=== PATIENT | female | born 1965 | race Caucasian/White ===

== ENCOUNTER 2022-05-04 07:41 | Day surgery (SDC) | payer MEDICAID ==
[~2022-05-04] VITALS: Ht 175.3 cm; Wt 93.0 kg
[2022-05-04] MEDS ORDERED: LISINOPRIL10 MG PO (09:18)
[2022-05-04] MEDS ORDERED: ATORVASTATIN CA80 MG PO (09:19)
[2022-05-04] MEDS ORDERED: METOPROL TAR25 MG PO (09:19)
[2022-05-04] MEDS ORDERED: LATUDA60 MG (09:20)
[2022-05-04] MEDS ORDERED: PAXIL40 MG PO (09:21)
[2022-05-04] MEDS ORDERED: GABAPENTIN100 MG PO (09:22)
[2022-05-04 12:36] VITALS: BP 135/83
== END 2022-05-04 10:05 | disposition home or self-care (01) ==
LOC: ORM 07:41
PROVIDERS: ATTEND Physical Medicine & Rehabilitation
DX: M48.062 Spinal stenosis, lumbar region with neurogenic claudication (principal); G89.4 Chronic pain syndrome; Z01.818 Encounter for other preprocedural examination; Z11.59 Encounter for screening for other viral diseases
CPT/HCPCS: J1100; J3490; Q9967